=== PATIENT | female | born 1975 | race Two or more races ===

== ENCOUNTER 2019-06-26 02:38 | Day surgery (SDC) | payer OTHER ==
[~2019-06-26] VITALS: Ht 157.5 cm; Wt 59.4 kg
[2019-06-26] MEDS ORDERED: AMOX1TAB5 PO (10:48)
== END 2019-06-26 14:10 | disposition home or self-care (01) ==
LOC: ER 02:38 → CIR.AMB 08:10
DX: O03.4 Incomplete spontaneous abortion without complication (principal)

== ENCOUNTER 2021-04-10 15:35 | Outpatient (CLI) | payer OTHER ==
[~2021-04-10 15:35] MED LIST: AMOX1TAB5 PO
== END 2021-04-10 16:00 | disposition home or self-care (01) ==
LOC: NST 15:35
PROVIDERS: ATTEND Obstetrics & Gynecology Maternal & Fetal Medicine
DX: Z34.83 Encounter for supervision of other normal pregnancy, third trimester (principal)

== ENCOUNTER 2021-04-21 11:15 | Inpatient (IN) | payer OTHER ==
[~2021-04-21] VITALS: Ht 154.9 cm; Wt 68.0 kg
[2021-04-22] MEDS ORDERED: PRENATAL TABLE1 EAC3 PO (04:46)
== END 2021-04-24 14:27 | disposition home or self-care (01) | DRG 807 ==
LOC: SURG-SUITE 04-22 04:40 → LDR 04-22 04:40 → SURG-SUITE 04-22 09:49 → OB/GYN 04-23 12:00 → SURG-SUITE 04-24 14:27 → SURH 04-26 12:00
PROVIDERS: ADMIT Obstetrics & Gynecology Maternal & Fetal Medicine; ATTEND Obstetrics & Gynecology Maternal & Fetal Medicine
PROC: 10E0XZZ Delivery of Products of Conception, External Approach (ICD-10-PCS; principal; 2021-04-22)
PROC: 0KQM0ZZ Repair Perineum Muscle, Open Approach (ICD-10-PCS; 2021-04-22)
PROC: 0UQGXZZ Repair Vagina, External Approach (ICD-10-PCS; 2021-04-22)
PROC: 4A1HXCZ Monitoring of Products of Conception, Cardiac Rate, External Approach (ICD-10-PCS; 2021-04-22)
PROC: 3E033VJ Introduction of Other Hormone into Peripheral Vein, Percutaneous Approach (ICD-10-PCS; 2021-04-22)
DX: O71.4 Obstetric high vaginal laceration alone (principal); Z37.0 Single live birth; Z3A.39 39 weeks gestation of pregnancy; Z20.822 Contact with and (suspected) exposure to COVID-19

== ENCOUNTER 2021-04-21 11:36 | Outpatient (CLI) | payer OTHER ==
[2021-04-22] MEDS ORDERED: PRENATAL TABLE1 EAC3 PO (04:46)
== END 2021-04-21 11:56 | disposition home or self-care (01) ==
LOC: NST 11:36
PROVIDERS: ATTEND Obstetrics & Gynecology
DX: Z34.83 Encounter for supervision of other normal pregnancy, third trimester (principal)

== ENCOUNTER 2022-08-17 10:56 | Outpatient (CLI) | payer OTHER ==
[~2022-08-17 10:56] MED LIST changes: +PRENATAL TABLE1 EAC3 PO
== END 2022-08-17 11:02 | disposition home or self-care (01) ==
LOC: SONOGRAMA 10:56
PROVIDERS: ATTEND Pathology Anatomic Pathology & Clinical Pathology
DX: R59.0 Localized enlarged lymph nodes (principal)

== ENCOUNTER 2023-05-04 06:10 | Day surgery (SDC) | payer OTHER ==
[~2023-05-04] VITALS: Ht 154.9 cm; Wt 59.9 kg
[2023-05-04] MEDS ORDERED: CEFAZOLIN SODIUM 1,000 MG VIAL ONE (09:43)
[2023-05-04] MEDS ORDERED: CEFAZOLIN SODIUM 1,000 MG in 0.9 % SODIUM CHLORIDE 50 ML IV ONE (10:15)
[2023-05-04] MEDS ORDERED: SUGAMMADEX SODIUM 200 MG/2 ML VIAL IV ONE ×2 (10:41→11:15)
== END 2023-05-04 16:42 | disposition home or self-care (01) ==
LOC: CIR.AMB 06:10
PROVIDERS: ATTEND Surgery
DX: K40.30 Unilateral inguinal hernia, with obstruction, without gangrene, not specified as recurrent (principal); Z91.041 Radiographic dye allergy status; Z91.013 Allergy to seafood; Z20.822 Contact with and (suspected) exposure to COVID-19